=== PATIENT | male | born 2000 | race African-American/Black ===

== ENCOUNTER 2024-11-23 04:36 | Emergency (ER) | payer OTHER ==
[~2024-11-23] VITALS: Ht 182.9 cm; Wt 80.0 kg
[2024-11-23 04:40] VITALS: O2SAT 98
[2024-11-23] MEDS: ACETAMINOPHEN 325MG TABLET PO ONE (05:48)
[2024-11-23] MEDS ORDERED: IBUP-2030 PO (06:31)
[2024-11-23 07:01] VITALS: BP 123/65; PULSE 84; RESP 20; TEMP 36.6; O2SAT 95
== END 2024-11-23 07:44 | disposition home or self-care (01) ==
LOC: ER 04:36
DX: S00.81XA Abrasion of other part of head, initial encounter (principal); F17.200 Nicotine dependence, unspecified, uncomplicated; F12.90 Cannabis use, unspecified, uncomplicated; V49.40XA Driver injured in collision with unspecified motor vehicles in traffic accident, initial encounter; Y92.410 Unspecified street and highway as the place of occurrence of the external cause; Y92.89 Other specified places as the place of occurrence of the external cause; Y99.8 Other external cause status
CPT/HCPCS: 36415; 70486; 72131; 76705; 80320; 93880; 99284; G0480